=== PATIENT | male | born 1985 | race Caucasian/White ===

== ENCOUNTER 2017-03-13 17:47 | Emergency (ER) | payer SELFPAY | END 2017-03-13 20:44 | disposition home or self-care (01) | LOC: D.ER 17:47 | DX: S93.602A Unspecified sprain of left foot, initial encounter (principal); W20.8XXA Other cause of strike by thrown, projected or falling object, initial encounter; Y93.89 Activity, other specified; Y92.89 Other specified places as the place of occurrence of the external cause; S90.02XA Contusion of left ankle, initial encounter; F17.200 Nicotine dependence, unspecified, uncomplicated ==

== ENCOUNTER 2017-12-17 19:01 | Emergency (ER) | payer MEDICAID ==
[~2017-12-17] VITALS: Ht 175.3 cm; Wt 63.6 kg
[2017-12-17 19:10] VITALS: Ht 175.3 cm; Wt 63.6 kg
[2017-12-17] MEDS ORDERED: HYDROCODONE-APA1 TAB PO (20:40)
[2017-12-17] MEDS ORDERED: VOLTAREN75 MG PO (20:40)
[2017-12-18 00:20] VITALS: BP 135/80
== END 2017-12-17 21:26 | disposition home or self-care (01) ==
LOC: D.ER 19:01
DX: S22.32XA Fracture of one rib, left side, initial encounter for closed fracture (principal); W11.XXXA Fall on and from ladder, initial encounter; Y93.89 Activity, other specified; Y92.019 Unspecified place in single-family (private) house as the place of occurrence of the external cause; R06.02 Shortness of breath; F17.200 Nicotine dependence, unspecified, uncomplicated